=== PATIENT | male | born 1955 ===

== ENCOUNTER → 2020-12-27 | Outpatient (CLI) | payer OTHER, MEDICARE | LOC: SJCVC 15:33 | PROVIDERS: ATTEND Internal Medicine Cardiovascular Disease | DX: I25.10 Atherosclerotic heart disease of native coronary artery without angina pectoris (principal); R00.1 Bradycardia, unspecified; I47.2 Ventricular tachycardia; E78.2 Mixed hyperlipidemia; Z79.82 Long term (current) use of aspirin; Z79.899 Other long term (current) drug therapy; Z82.49 Family history of ischemic heart disease and other diseases of the circulatory system ==